=== PATIENT | female | born 1995 | race Two or more races ===

== ENCOUNTER 2023-11-29 19:32 | Emergency (ER) | payer MEDICAID, SELFPAY ==
[2023-11-29 19:35] VITALS: PULSE 110; O2SAT 98; BMI 29.9
[2023-11-29 19:44] VITALS: BP 128/90; PULSE 119; RESP 19; TEMP 37.3; O2SAT 97
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
--- NOTE | 2023-11-29 20:53 | PC.NURSE ---
[facility] LOG NUMBER [id number]
--- NOTE | 2023-11-29 21:53 | PC.NURSE ---
[facility] NUMBER [id number].
[2023-11-29 22:13] VITALS: BP 122/82; PULSE 88; RESP 16; TEMP 36.6; O2SAT 99
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
== END 2023-11-29 22:14 | disposition home or self-care (01) ==
PROVIDERS: Emergency Provider Emergency Medicine
DX: S50.12XA Contusion of left forearm, initial encounter (principal); S60.222A Contusion of left hand, initial encounter; S40.012A Contusion of left shoulder, initial encounter; S29.9XXA Unspecified injury of thorax, initial encounter; S19.9XXA Unspecified injury of neck, initial encounter; S09.90XA Unspecified injury of head, initial encounter; V89.2XXA Person injured in unspecified motor-vehicle accident, traffic, initial encounter
CPT/HCPCS: 70450; 71045; 72125; 73030; 73090; 73130; 99284